=== PATIENT | female | born 1970 | race Two or more races ===

== ENCOUNTER 2022-12-15 11:50 | Outpatient (AMB) | payer BC, SELFPAY ==
--- NOTE | 2022-12-15 11:51 | A.OFFPC_ITS ---
Vital Signs 12/15/22 11:53 Height 5 ft 6 in Weight 150 lb 8 oz BMI 24.3 BP 120/80 Blood Pressure Location Lt brachial Position Sitting Pulse 63 Pulse Source Pulse Oximeter Pulse Oximetry (%) 99 Oxygen Delivery Method Room Air Intake Visit Reasons: Pain in Right Ear Intake Note: Patient is here today for right ear pain. 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 Accompanied by: Spouse Allergies No Known Allergies Allergy (Verified 12/15/22 11:53) Medication List - Last Reconciled 12/16/22 by Delfino Hagan MD azithromycin take 500 mg today (day 1), then 250 mg for 4 days (days 2-5) PO conj estrog-medroxyprogest sami 0.625-5 mg (Prempro) 1 tab PO DAILY Tobacco use date assessed: 12/15/22 Dental Screening Dental Screen Date: 12/15/22 Did you have a dental visit in the last 12 months?: Yes Did you have a dental problem in the last 6 months where you did not have access to dental care?: No Was dental information given to patient?: Patient has dentist HPI Pain in Right Ear HPI Details right ear pain for a few days PFSH Surgical History No pertinent past surgical history Social History (Updated 12/15/22 @ 11:57 by KELSEY Pulido) Housing: Condominium Alcohol intake: current Alcohol intake frequency: a few times a month Alcohol type: wine Patient Tobacco Use Status: Never used Tobacco e-Cigarette/Vaping Use: Never Used Second Hand Smoke Exposure: No service: No Current occupational status: employed Current occupation: [employer] Cognitive needs: No Hearing needs: No Vision needs: Yes (Glasses) Questionnaire PHQ-9 Over the last 2 weeks, how often have you been bothered by any of the following problems? 1. Little interest or pleasure in doing things: not at all 2. Feeling down, depressed, or hopeless: not at all 3. Trouble falling or staying asleep, or sleeping too much: not at all 4. Feeling tired or having little energy: not at all 5. Poor appetite or overeating: not at all 6. Feeling bad about yourself - or that you are a failure or have let yourself or your family down: not at all 7. Trouble concentrating on things, such as reading the newspaper or watching television: not at all 8. Moving or speaking so slowly that other people could have noticed. Or the opposite - being so fidgety or restless that you have been moving around a lot more than usual: not at all 9. Thoughts that you would be better off or of hurting yourself in some way: not at all Total score: 0 Depression Screening Interpretation: Negative Source: Developed by Drs. Delvis Fisher, Deisy Paul, Maxwell Peña and colleagues, with an educational hayden from [employer]. Thrive Questionnaire Date Thrive assessed: 12/15/22 I am a: Patient What is your living situation today?: I have a steady place to live Within the past 12 months, did the food you bought not last and you didn't have the money to get more?: Never true Within the past 12 months, did you worry whether your food would run out before you got money to buy more?: Never true Do you have trouble paying for medicines?: No Do you have trouble getting transportation to medical appointments?: No Do you have trouble paying your heating and electricity bill?: No Do you have trouble taking care of your child, family member or friend?: No Do you have trouble with day-to-day activities such as bathing, preparing meals, shopping, managing finances, etc.?: No Are you currently unemployed and looking for a job?: No Are you interested in more education?: No Currently or been in a relationship where the following occur: no concerns reported AUDIT C Alcohol Use Questionnaire (AUDIT-C) 1. How often do you have a drink containing alcohol?: Monthly or less 2. How many drinks containing alcohol do you have on a typical day when you are drinking?: 1 or 2 Total Score: 1 ANDREIA-7 AMB Questionnaire ANDREIA-7 Date ANDREIA - 7 assessed: 12/15/22 Feeling nervous, anxious, or on edge: 0 = Not at all Not being able to stop or control worryin = Not at all Worrying too much about different things: 0 = Not at all Trouble relaxin = Not at all Being so restless that it is hard to sit still: 0 = Not at all Becoming easily annoyed or irritable: 0 = Not at all Feeling afraid as if something awful might happen: 0 = Not at all Total ANDREIA-7 score (0-4 normal; 5-9 mild; 10-14 moderate; 15-21 severe): 0 Source: Developed by Drs. Delvis Fisher, Deisy Paul, Maxwell Peña and colleagues, with an educational hayden from [employer]. Review of Systems Const Denies chills, Denies headache(s) and Denies weight loss ENT Denies headache(s) Card Denies chest pain, Denies syncope, Denies irregular heart rhythm and Denies dyspnea Resp Denies chest congestion, Denies cough and Denies dyspnea GI Denies abdominal pain, Denies change in stool character, Denies nausea and Denies vomiting Musc Denies deformity and Denies joint swelling Neuro Denies syncope and Denies headache(s) Physical exam (Primary Care) Vital Signs: Last Vital Signs Pulse 63 12/15/22 11:53 BP 120/80 12/15/22 11:53 Pulse Ox 99 12/15/22 11:53 Oxygen Delivery Method Room Air 12/15/22 11:53 BMI result Body Mass Index 24.3 Tobacco/Smoking Status: Tobacco use Status Tobacco use date assessed 12/15/22 12/15/22 11:58 Patient Tobacco Use Status Never used Tobacco 12/15/22 11:58 e-Cigarette/Vaping Use Never Used 12/15/22 11:58 PHQ-9: PHQ-9 Score PHQ-9: Total score 0 12/15/22 11:58 Depression Screening Interpretation: Negative Thrive Assessment: Date of Thrive Assessment Date Thrive assessed 12/15/22 12/15/22 11:58 Currently or been in a relationship where the following occur: no concerns reported Const General: cooperative, comfortable and no acute distress HENMT Other: right OM Eyes General: appearance normal, both eyes and all related structures Neck Neck: Yes normal visual inspection Assessment and Plan Assessment & Plan (1) Otitis media: Code(s): H66.90 - Otitis media, unspecified, unspecified ear Plan: take rx Medications: New azithromycin take 500 mg today (day 1), then 250 mg for 4 days (days 2-5) PO 6 tabs 0RF Coding Level of Care Code Est Pt Level 3 (31328) Diagnoses Otitis media H66.90
[2022-12-15 11:53] VITALS: BP 120/80; PULSE 63; O2SAT 99; BMI 24.3
== END 2022-12-15 12:54 | disposition home or self-care (01) ==
PROVIDERS: PCP Internal Medicine; Visit Provider Internal Medicine
DX: H66.90 Otitis media, unspecified, unspecified ear (principal)
CPT/HCPCS: 99213

== ENCOUNTER 2023-01-27 14:09 | Outpatient (AMB) | payer BC, SELFPAY ==
[2023-01-27 14:12] VITALS: BP 124/82; PULSE 60; O2SAT 100; BMI 24.9
--- NOTE | 2023-01-27 14:12 | MHC.PC.OV ---
Vital Signs 01/27/23 14:12 Height 5 ft 6 in Weight 154 lb BMI 24.9 BP 124/82 Blood Pressure Location Lt brachial Position Sitting Pulse 60 Pulse Source Pulse Oximeter Pulse Oximetry (%) 100 Oxygen Delivery Method Room Air Intake Visit Reasons: EAR PAIN Allergies No Known Allergies Allergy (Verified 01/27/23 14:13) Medication List - Last Reconciled 01/28/23 by Delfino Hagan MD azithromycin take 500 mg today (day 1), then 250 mg for 4 days (days 2-5) PO conj estrog-medroxyprogest sami 0.625-5 mg (Prempro) 1 tab PO DAILY zolpidem 5 mg PO BEDTIME Tobacco use date assessed: 12/15/22 Dental Screening Dental Screen Date: 01/27/23 Did you have a dental visit in the last 12 months?: Yes Did you have a dental problem in the last 6 months where you did not have access to dental care?: No Was dental information given to patient?: Patient has dentist HPI EAR PAIN HPI Details right ear pain PFSH Surgical History No pertinent past surgical history Social History Housing: Condominium Alcohol intake: current Alcohol intake frequency: a few times a month Alcohol type: wine Patient Tobacco Use Status: Never used Tobacco e-Cigarette/Vaping Use: Never Used Second Hand Smoke Exposure: No service: No Current occupational status: employed Current occupation: [employer] Cognitive needs: No Hearing needs: No Vision needs: Yes (Glasses) Questionnaire PHQ-9 Over the last 2 weeks, how often have you been bothered by any of the following problems? 1. Little interest or pleasure in doing things: not at all 2. Feeling down, depressed, or hopeless: not at all 3. Trouble falling or staying asleep, or sleeping too much: not at all 4. Feeling tired or having little energy: not at all 5. Poor appetite or overeating: not at all 6. Feeling bad about yourself - or that you are a failure or have let yourself or your family down: not at all 7. Trouble concentrating on things, such as reading the newspaper or watching television: not at all 8. Moving or speaking so slowly that other people could have noticed. Or the opposite - being so fidgety or restless that you have been moving around a lot more than usual: not at all 9. Thoughts that you would be better off or of hurting yourself in some way: not at all Total score: 0 Depression Screening Interpretation: Negative Depression Screening Done: Yes Source: Developed by Drs. Delvis Fisher, Deisy Paul, Maxwell Peña and colleagues, with an educational hayden from [employer]. Thrive Questionnaire Date Thrive assessed: 12/15/22 AUDIT C Alcohol Use Questionnaire (AUDIT-C) 1. How often do you have a drink containing alcohol?: Monthly or less 2. How many drinks containing alcohol do you have on a typical day when you are drinking?: 1 or 2 Total Score: 1 ANDREIA-7 AMB Questionnaire ANDREIA-7 Date ANDREIA - 7 assessed: 12/15/22 Source: Developed by Drs. Delvis Fisher, Deisy Paul, Maxwell Peña and colleagues, with an educational hayden from [employer]. Review of Systems Const Denies chills, Denies headache(s) and Denies weight loss ENT Denies headache(s) Card Denies chest pain, Denies syncope, Denies irregular heart rhythm and Denies dyspnea Resp Denies chest congestion, Denies cough and Denies dyspnea GI Denies abdominal pain, Denies change in stool character, Denies nausea and Denies vomiting Musc Denies deformity and Denies joint swelling Neuro Denies syncope and Denies headache(s) Physical exam (Primary Care) Vital Signs: Last Vital Signs Pulse 60 01/27/23 14:12 BP 124/82 01/27/23 14:12 Pulse Ox 100 01/27/23 14:12 Oxygen Delivery Method Room Air 01/27/23 14:12 BMI result Body Mass Index 24.9 Tobacco/Smoking Status: Tobacco use Status Tobacco use date assessed 12/15/22 01/27/23 14:14 Patient Tobacco Use Status Never used Tobacco 01/27/23 14:14 e-Cigarette/Vaping Use Never Used 01/27/23 14:14 PHQ-9: PHQ-9 Score PHQ-9: Total score 0 01/27/23 14:23 Depression Screening Interpretation: Negative Thrive Assessment: Date of Thrive Assessment Date Thrive assessed 12/15/22 01/27/23 14:14 Const General: cooperative, comfortable, no acute distress and alert HENMT Other: normal ears Neck Neck: Yes no lymphadenopathy Thyroid: Thyroid normal Resp Effort & Inspection: normal respiratory effort Auscultation: clear to auscultation bilaterally Percussion: percussion normal Cardio Jugular venous distension: no JVD Palpation: normal PMI Rate: regular rate Rhythm: regular rhythm Heart sounds: S1 normal heart sound present and S2 normal heart sound present GI Inspection: Yes normal to inspection Palpation (GI): No hepatosplenomegaly present Skin General skin exam: no rashes or lesions noted Extrem General: Yes no clubbing, cyanosis or edema Assessment and Plan Assessment & Plan (1) Otalgia of right ear: Code(s): H92.01 - Otalgia, right ear Plan: refer Orders: Referrals Ear/Nose/Throat Referral H92.01 - Otalgia, right ear Medications: New zolpidem may repeat once if no response in 30-60 minutes 5 mg PO BEDTIME 30 tabs 2RF Refilled azithromycin take 500 mg today (day 1), then 250 mg for 4 days (days 2-5) PO 6 tabs 1RF Coding Level of Care Code Est Pt Level 3 (96828) Diagnoses Otalgia of right ear H92.01
== END 2023-01-27 15:17 | disposition home or self-care (01) ==
PROVIDERS: PCP Internal Medicine; Visit Provider Internal Medicine
DX: H92.01 Otalgia, right ear (principal)
CPT/HCPCS: 99213

== ENCOUNTER 2024-07-12 11:34 | Outpatient (AMB) | payer BC, SELFPAY ==
[2024-07-12 11:39] VITALS: BP 118/72; PULSE 63; TEMP 36.9; O2SAT 98
--- NOTE | 2024-07-12 11:39 | MHC.OFFWIV ---
Intake Vital Signs 07/12/24 11:39 Height 5 ft 6 in BP 118/72 Blood Pressure Location Lt brachial Position Sitting Pulse 63 Pulse Source Pulse Oximeter Temp 98.5 F Temp Source Oral Pulse Oximetry (%) 98 Oxygen Delivery Method Room Air Intake Visit Reasons: EP-sore throat,cough,headaches,running nose Patient Tobacco Use Status: Never used Tobacco Allergies No Known Allergies Allergy (Verified 07/12/24 11:39) Do you need a note to return to daycare/school/sports/work: No HPI HPI Comments History of Present Illness Details This is a 54-year-old female with no stated past medical history presenting for evaluation of cough, sore throat and headache that she has had since Thursday evening. Patient states she became hoarse with body aches over the weekend. She denies having any fevers but has had chills. She is taking Tylenol and DayQuil for relief of her symptoms. Patient denies having any otalgia, chest pain or overt shortness of breath. Patient states she traveled to [place] last week to visit family and 1 of her family members had similar symptoms. [facility] Medical History (Updated 07/12/24 @ 12:14 by Rosa Mohamud PA-C) Acute upper respiratory infection Surgical History No pertinent past surgical history Social History [facility] Alcohol intake: current Alcohol intake frequency: a few times a month Alcohol type: wine Patient Tobacco Use Status: Never used Tobacco e-Cigarette/Vaping Use: Never Used Second Hand Smoke Exposure: No service: No Current occupational status: employed Current occupation: [place] [employer] Cognitive needs: No Hearing needs: No Vision needs: Yes (Glasses) Review of Systems Const All systems reviewed & are unremarkable except as noted in HPI and below Reports as per HPI, Reports chills, Reports fatigue, Denies fever(s) and Reports headache(s) Eyes Reports no additional complaints ENT Reports as per HPI, Denies otalgia, Reports headache(s), Denies sinus pressure and Reports sore throat Card Reports as per HPI, Denies chest pain, Denies dyspnea and Denies dyspnea on exertion Resp Reports cough, Denies hemoptysis, Denies dyspnea, Denies dyspnea on exertion and Denies wheezing GI Reports no additional complaints Reports no additional complaints Musc Reports no additional complaints Skin/Breast Reports system reviewed and no additional complaints, except as documented Neuro Reports no additional complaints and Reports headache(s) Psych Reports no additional complaints Endo Reports no additional complaints and Reports fatigue Charbel/Lymph Reports no additional complaints Aller/Immun Reports no additional complaints and Denies wheezing Physical Exam Vital Signs: Last Vital Signs Temp 98.5 F 07/12/24 11:39 Pulse 63 07/12/24 11:39 BP 118/72 07/12/24 11:39 Pulse Ox 98 07/12/24 11:39 Oxygen Delivery Method Room Air 07/12/24 11:39 Patient is afebrile. Const General: cooperative, comfortable, well developed, alert and awake Nutritional Appearance: average body habitus Orientation/consciousness: patient oriented x3 Limitations: no limitations HEENT Head: Yes normal to inspection and Yes normocephalic Ears: hearing grossly normal bilaterally, external ears normal, TM's normal bilaterally and EAC's normal General nose exam: Normal external nose present Face and sinus: Yes normal facial exam Mouth: Normal oral and palatal mucosa present, oropharynx normal and moist mucous membranes Throat: Yes posterior oropharynx normal and No postnasal drainage Eyes General: appearance normal, both eyes and all related structures Neck Lymphatic: no lymphadenopathy noted Resp Effort & Inspection: normal respiratory effort, able to speak in complete sentences, no audible wheezes and no cough Auscultation: clear to auscultation bilaterally, no crackles, no rales, no rhonchi and no wheezes Cardio Rate: regular rate Rhythm: regular rhythm Skin General skin exam: no rashes or lesions noted Neuro General: patient oriented x3 Psych Appearance: grossly normal Mental Status: mental status grossly normal Insight: Good insight present (Psych) Judgement: Good judgement present (Psych) Results AMB Rapid Strep AMB Rapid Strep Negative Last Edit by Leonides Adamson CMA on 07/12/24 11:53 Results Reviewed Results Reviewed: Laboratory Last Values Strep Scn [facility] Negative 07/12/24 11:52 Assessment & Plan Assessment & Plan (1) Acute upper respiratory infection: Comment: SARS panel is ordered and results are pending. Code(s): J06.9 - Acute upper respiratory infection, unspecified Plan: Increased clear fluids daily, Mucinex OTC, Tylenol or ibuprofen as needed, tea with honey for cough. SARS panel pending. Orders: Orders AMB Rapid Strep Screen Today Z13.9 - Encounter for screening, unspecified SARS-CoV2/FLU/RSV Today J06.9 - Acute upper respiratory infection, unspecified Coding Level of Care Code Est Pt Level 3 (89777) Diagnoses Acute upper respiratory infection J06.9 Time Spent (min) 20
== END 2024-07-12 12:14 | disposition home or self-care (01) ==
PROVIDERS: PCP Internal Medicine; Visit Provider Physician Assistant
DX: J06.9 Acute upper respiratory infection, unspecified (principal); Z13.9 Encounter for screening, unspecified

== ENCOUNTER 2024-07-12 11:34 | Outpatient (REF) | payer BC, SELFPAY ==
[2024-07-12 16:08] LABS: Influenza A PCR NEGATIVE (Negative); Influenza B PCR NEGATIVE (Negative); Resp Syncy Virus RNA Qual PCR NEGATIVE (Negative); SARS COV2 PCR INHOUSE NEGATIVE (Negative)
== END 2024-07-12 11:35 | disposition home or self-care (01) ==
LOC: HO.LNP 11:34
PROVIDERS: PCP Internal Medicine; Visit Provider Physician Assistant
DX: J06.9 Acute upper respiratory infection, unspecified (principal); Z03.818 Encounter for observation for suspected exposure to other biological agents ruled out
CPT/HCPCS: 0241U; 87880

== ENCOUNTER 2024-11-11 15:29 | Outpatient (AMB) | payer BC, SELFPAY ==
[2024-11-11 15:32] VITALS: BP 100/70; PULSE 85; TEMP 36.2; O2SAT 95; BMI 24.4
--- NOTE | 2024-11-11 15:32 | A.OFFPC_ITS ---
Vital Signs 11/11/24 15:32 Height 5 ft 6 in Weight 151 lb 2 oz BMI 24.4 BP 100/70 Blood Pressure Location Lt brachial Position Sitting Pulse 85 Pulse Source Pulse Oximeter Temp 97.1 F Temp Source Temporal Artery Scan Pulse Oximetry (%) 95 Oxygen Delivery Method Room Air Intake Visit Reasons: DARIELA DR Hagan/ follow up [employer] Lead Required: No Accompanied by: Self / Same As Patient Allergies No Known Allergies Allergy (Verified 11/11/24 16:04) Medication List - Last Reconciled 11/11/24 by CHRYSTAL Whalen conj estrog-medroxyprogest sami 0.625-5 mg (Prempro) 1 tab PO DAILY zolpidem 5 mg PO BEDTIME Tobacco use date assessed: 11/11/24 Dental Screening Dental Screen Date: 11/11/24 Did you have a dental visit in the last 12 months?: Yes Did you have a dental problem in the last 6 months where you did not have access to dental care?: No Was dental information given to patient?: Patient has dentist HPI DARIELA DR Hagan/ follow up HPI Details The patient is a 54-year-old female presenting to transition care from Dr. Hagan who retired. She is here with concerns of medication management for Prempro due to upcoming travel to [facility] for one year. The patient has been taking Prempro monthly and requires a long-term prescription to cover her stay in [facility]. She has discussed with the pharmacy about the possibility of obtaining a long-term supply, and they have indicated willingness to provide it if the order is placed. She reports history of insomnia in his requesting a refill on her Ambien 5 mg at bedtime. Reports that she rarely takes it but think that she should have it just in case this worsens Additionally, the patient experiences menopausal symptoms and is currently managing these with Prempro. Patient refused request to order labs because there is no blood work noted in her chart. Per patient, she will do this when she is back from [facility]. COUNT INCLUDES THE [facility] Medical History Acute upper respiratory infection Surgical History No pertinent past surgical history Social History Housing: Condominium Alcohol intake: current Alcohol intake frequency: a few times a month Alcohol type: wine Patient Tobacco Use Status: Never used Tobacco e-Cigarette/Vaping Use: Never Used Second Hand Smoke Exposure: No service: No Current occupational status: employed Current occupation: [employer] Cognitive needs: No Hearing needs: No Vision needs: Yes (Glasses) Questionnaire PHQ-9 Over the last 2 weeks, how often have you been bothered by any of the following problems? 1. Little interest or pleasure in doing things: not at all 2. Feeling down, depressed, or hopeless: not at all 3. Trouble falling or staying asleep, or sleeping too much: not at all 4. Feeling tired or having little energy: not at all 5. Poor appetite or overeating: not at all 6. Feeling bad about yourself - or that you are a failure or have let yourself or your family down: not at all 7. Trouble concentrating on things, such as reading the newspaper or watching te levision: not at all 8. Moving or speaking so slowly that other people could have noticed. Or the opposite - being so fidgety or restless that you have been moving around a lot more than usual: not at all 9. Thoughts that you would be better off or of hurting yourself in some way: not at all Total score: 0 Depression Screening Interpretation: Negative Depression Screening Done: Yes 65405 - PHQ-9 Billing: Yes Source: Developed by Drs. Delvis Fisher, Deisy Paul, Maxwell Peña and colleagues, with an educational hayden from [employer]. Thrive Questionnaire Date Thrive assessed: 11/11/24 I am a: Patient What is your living situation today?: I have a steady place to live Within the past 12 months, did the food you bought not last and you didn't have the money to get more?: Never true Within the past 12 months, did you worry whether your food would run out before you got money to buy more?: Never true Do you have trouble paying for medicines?: No Do you have trouble getting transportation to medical appointments?: I choose not to answer this question Do you have trouble paying your heating and electricity bill?: No Do you have trouble taking care of your child, family member or friend?: No Do you have trouble with day-to-day activities such as bathing, preparing meals, shopping, managing finances, etc.?: No Are you currently unemployed and looking for a job?: No Are you interested in more education?: No Please select the resources that you would like help with: None Currently or been in a relationship where the following occur: No concerns reported THRIVE Score: 0 AUDIT C Alcohol Use Questionnaire (AUDIT-C) 1. How often do you have a drink containing alcohol?: Never Total Score: 0 ANDREIA-7 AMB Questionnaire ANDREIA-7 Date ANDREIA - 7 assessed: 11/11/24 Feeling nervous, anxious, or on edge: 0 = Not at all Not being able to stop or control worryin = Not at all Worrying too much about different things: 0 = Not at all Trouble relaxin = Not at all Being so restless that it is hard to sit still: 0 = Not at all Becoming easily annoyed or irritable: 0 = Not at all Feeling afraid as if something awful might happen: 0 = Not at all Total ANDREIA-7 score (0-4 normal; 5-9 mild; 10-14 moderate; 15-21 severe): 0 Source: Developed by Drs. Delvis Fisher, Deisy Paul, Maxwell Peña and colleagues, with an educational hayden from [employer]. ANDREIA-7 Assessment Billing ANDREIA-7 Assessment Tool: ANDREIA-7 Assessment 29861 Review of Systems Const Reports difficulty sleeping and Denies headache(s) Eyes Denies loss of vision ENT Denies vertigo, Denies dizziness, Denies headache(s) and Denies sore throat Card Denies chest pain, Denies leg edema and Denies lightheadedness Resp Denies cough, Denies hemoptysis and Denies wheezing GI Denies abdominal pain, Denies melena, Denies constipation, Denies diarrhea and Denies vomiting Denies urinary frequency, Denies dysuria and Denies urinary urgency Musc Denies arthralgias, Denies joint swelling, Denies numbness and Denies tingling Neuro Denies Abnormal speech present, Denies behavioral changes, Denies vertigo, Denies dizziness, Denies headache(s), Denies loss of vision, Denies memory loss, Denies numbness and Denies tingling Psych Denies anxiety, Denies behavioral changes, Denies depression, Denies memory loss and Denies panic attacks Charbel/Lymph Denies easy bleeding and Denies easy bruising Aller/Immun Denies wheezing Physical exam (Primary Care) Vital Signs: Last Vital Signs Temp 97.1 F 11/11/24 15:32 Pulse 85 11/11/24 15:32 BP 100/70 11/11/24 15:32 Pulse Ox 95 11/11/24 15:32 Oxygen Delivery Method Room Air 11/11/24 15:32 BMI result Body Mass Index 24.4 Tobacco/Smoking Status: Tobacco use Status Tobacco use date assessed 11/11/24 11/11/24 15:39 Patient Tobacco Use Status Never used Tobacco 11/11/24 15:39 e-Cigarette/Vaping Use Never Used 11/11/24 15:39 PHQ-9: PHQ-9 Score PHQ-9: Total score 0 11/11/24 17:05 Depression Screening Interpretation: Negative Thrive Assessment: Date of Thrive Assessment Date Thrive assessed 11/11/24 11/11/24 15:39 Currently or been in a relationship where the following occur: No concerns repor katy Const General: healthy appearing, no acute distress, alert and awake Nutritional Appearance: well nourished Orientation/consciousness: oriented to person, oriented to place and oriented to time HENMT Ears: TM's normal bilaterally General nose exam: Normal nasal mucous membranes and turbinates present Eyes Conjunctivae: conjunctivae normal Sclerae: sclerae normal Pupils: Equal, round and reactive pupils present Neck Neck: Yes no lymphadenopathy and Yes no JVD Thyroid: Thyroid normal Carotids: no bruits Resp Effort & Inspection: normal respiratory effort and not tachypneic Auscultation: no crackles, no rales, no rhonchi and no wheezes Cardio Rate: regular rate Rhythm: regular rhythm Heart sounds: no murmurs and normal S1 and S2 GI Palpation (GI): Soft to palpation, nontender, no hepatomegaly and no splen omegaly Auscultation: normal bowel sounds Skin General skin exam: no rashes or lesions noted and dry skin Neuro General: oriented to person, oriented to place and oriented to time Cranial nerves: Yes Equal, round and reactive pupils present Speech: No Abnormal speech present Gait exam (Neuro): Normal gait present Motor exam (neuro): no tremor noted Extrem Right upper extremity: full ROM Left upper extremity: full ROM Right lower extremity: full ROM; no edema Left lower extremity: full ROM; no edema Psych Mental Status: mental status grossly normal Speech and movement: Normal speech and movement present Affect: normal affect Attitude: cooperative Thought process: Normal thought process present Immunizations Boostrix Tdap 2.5 Lf unit-8 mcg-5 Lf/0.5 mL intramuscular syringe Performing Provider: CHRYSTAL Whalen [facility] Administered by: Dolores Bush LPN on 11/11/24 17:02 Dose Route Admin Location Dispensed Lot Number Expiration Date NDC Supervisor Assembly Room 0.5 mL IM Left Deltoid 0.5 mL [id number] 06/10/26 [id number] 3D Hubs Total Dispensed Waste 0.5 mL 0 % VIS Given Date VIS Provided VIS Publication Date 11/11/24 Single Vaccine 20 Eligibility Eligibility Date Funding Source Not [facility] Eligible 11/11/24 Private Coding Level of Care Code Est Pt Level 3 (03548) Diagnoses Post menopausal problems N95.9 Insomnia, unspecified type G47.00 Insomnia type: unspecified Additional Codes PHQ-9 - 61905 - PHQ-9 Billing: Yes ([id number]) ANDREIA-7 Assessment Billing - ANDREIA-7 Assessment Tool: ANDREIA-7 Assessment 80307 ([id number]) Time Spent (min) 33 Assessment & Plan Assessment & Plan (1) Post menopausal problems: Code(s): N95.9 - Unspecified menopausal and perimenopausal disorder Category: Medical Plan: Patient reports taking Prempro for her postmenopausal symptoms that as resolved since taking the medication. She is planning on going to [facility] for a year and would like to fill enough of this medication to last her during her stay. Benji freeman reports that she spoke to the pharmacy and they are willing to fill this medication if an order was placed. Discussed with the patient to call her insurance to see if they are willing to pay for this number of medication. Also, if her insurance is not willing to pay for this medication is it feasible to be paid out of pocket? The patient we will call her insurance and contact the office to let us know if we could go ahead an order the number of medication that she is requesting. (2) Insomnia: Code(s): G47.00 - Insomnia, unspecified Category: Medical Qualifiers: Insomnia type: unspecified Qualified Code(s): G47.00 - Insomnia, unspecified Plan: Reinforced sleep hygiene Refilled Ambien 5 mg at bedtime as needed Orders: Orders TDaP Immunization 11/11/24 Z23 - Encounter for immunization Medications: Changed From zolpidem may repeat once if no response in 30-60 minutes 5 mg PO BEDTIME 30 tabs 2RF To zolpidem 5 mg PO BEDTIME 30 tabs 0RF Refilled zolpidem may repeat once if no response in 30-60 minutes 5 mg PO BEDTIME 30 tabs 2RF
--- OUTSIDE RECORDS SUMMARY | 2024-11-11 15:32 | XMS_ITS | Data Portability ---
Author Organization [facility] Address [address] [place] [address] Assessment Encounter Date Assessment Date Assessment LastModified by Organization Details LastModified Time 04/28/2017 04/28/2017 Advised patient to follow up in 1 year or sooner if needed. [email or web address] Not available 04/28/2017 12:24:06 10/26/2017 10/26/2017 . [email or web address] Not available 12/2017 12:22:03 Plan of Treatment Reminders Order Date Submit Date Provider Last Modified By Organization Details Last Modified Time Details Appointments None record ed. Lab None record ed. Referral None record ed. Procedures None record ed. Surgeries None record ed. Imaging None record ed. Medication Orders None record ed. Patient TargetsNo targets recorded. Patient InstructionsNo instructions recorded. Reason for Referral None Reported. Results Created Date Observation Date Name Description Value Unit Range Abnormal Flag Note LastModifiedBy Organization Detail LastModifiedTime 04/28/19 18 04/28/2017 CBC WBC count 3.8 K/mm3 4.0-11 .0 low Not Available [address] [place] [address], [address], 04/28/2017 13:23:25 04/28/19 18 04/28/2017 CBC red blood cell count 4.20 M/uL 4.00-5 .50 normal Not Available [address] [place] [address], 8[address]18, 04/28/2017 13:23:25 04/28/19 18 04/28/2017 CBC hemoglobin 12.5 gm/dL 12.0-1 6.0 normal Not Available [address] [place] [address], 16565, 04/28/2017 13:23:25 04/28/19 18 04/28/2017 CBC hematocrit 39.0 % 37.0-4 7.0 normal Not Available [address] [place] [address], 56745, 04/28/2017 13:23:25 04/28/19 18 04/28/2017 CBC MCV 92.9 fL 84-99 normal Not Available [address] [place] [address], 94544, 04/28/2017 13:23:25 04/28/19 18 04/28/2017 CBC RDW 12.9 % 11.5-1 6.0 normal Not Available [address] [place] [address], 27312, 04/28/2017 13:23:25 04/28/19 18 04/28/2017 CBC plt count 262 K/uL 140-44 0 normal Not Available [address] [place] [address], 13947, 04/28/2017 13:23:25 04/28/19 18 04/28/2017 CBC NRBC% 0.0 % 0-0.2 normal Not Available [address] [place] [address], 26527, 04/28/2017 13:23:25 04/28/19 18 04/28/2017 CBC ne# 1.95 K/uL 1.5-7. 5 normal Not Available [address] [place] [address], [address], 04/28/2017 13:23:25 04/28/19 18 04/28/2017 CBC ly# 1.27 K/uL 1.0-4. 5 normal Not Available [address] [place] [address], [address], 04/28/2017 13:23:25 04/28/19 18 04/28/2017 CBC MO# 0.29 K/uL 0.0-0. 8 normal Not Available [address] [place] [address] [place] [address], 27725, 04/28/2017 13:23:25 04/28/19 18 04/28/2017 CBC eo# 0.24 K/uL 0.0-0. 4 normal Not Available [address] [place] [address] [address] [place] [address], 10365, 04/28/2017 13:23:25 04/28/19 18 04/28/2017 CBC ba# 0.02 K/uL 0.0-0. 2 normal Not Available [address] [place] [address] [address] [place] [address], 55840, 04/28/2017 13:23:25 04/28/1904/28/2017 CBC Ig# 0.01 K/uL normal Not Available [address] [place] [address] [address] [place] [address], 29319, 04/28/2017 13:23:25 04/28/19 18 04/28/2017 CBC ne% 51.6 % normal Not Available [address] [place] [address] [address] [place] [address], 88372, 04/28/2017 13:23:25 04/28/1904/28/2017 CBC ly% 33.6 % normal Not Available [address] [place] [address] [address] [place] [address], 82177, 04/28/2017 13:23:25 04/28/19 18 04/28/2017 CBC MO% 7.7 % normal Not Available [address] [place] [address] [address] [place] [address], 82466, 04/28/2017 13:23:25 04/28/19 18 04/28/2017 CBC eo% 6.3 % normal Not Available [address] [place] [address] [address] [place] [address], 98441, 04/28/2017 13:23:25 04/28/1904/28/2017 CBC ba% 0.5 % normal Not Available [address] [place] [address] [address] [place] [address], 51527, 04/28/2017 13:23:25 01/09/20 18 04/28/2017 CBC Ig% 0.3 % normal Not Available [address] [place] [address], 73362, 04/28/2017 13:23:25 04/28/19 18 04/28/2017 CMP, serum or plasm a glucose 78 mg/dL 70-100 normal Not Available [address] [place] [address], 77498, 04/28/2017 13:55:42 04/28/19 18 04/28/2017 CMP, serum or plasm a BUN 4 mg/dL 5-19 low Not Available [address] [place] [address], 12675, 04/28/2017 13:55:42 04/28/19 18 04/28/2017 CMP, serum or plasm a creatinine 0.58 mg/dL 0.0-1. 2 normal Not Available [address] [place] [address], 84236, 04/28/2017 13:55:42 04/28/19 18 04/28/2017 CMP, serum or plasm a glomerular filtration rate > 60 normal Units : mL/mi n/1.7 3 m2 Estim ated GFR (eGFR ) shoul d not be used for patie nts with acute kidne y injur y or ESRD (crea tinin e shoul d be at stead y state and stabl e to use). eGFR is calcu lated using the 2009 CKD-E PI creat inine equat ion, which is now the recom twan d equat ion to estim ate GFR based on creat inine per lates t KDIGO (Kidn ey Disea se Impro ving Globa l Outco mes) Guide lines . KDIGO recom mends CKD now be class ified based on cause , GFR categ ory, and album inuri a categ ory. GFR categ ories will not be repor katy by the lab for G1 or G2 (eGFR >60). GFR categ ories shoul d be assig carlos as: eGFR 45-59 = G3a (mild ly to moder ately decre ased) , eGFR 30-44 = G3b (mode ratel y to sever emma decre ased) , eGFR 15-29 G4 (andre rely decre ased) , eGFR< 15 G5 (kidn ey failu re). Not Available [address] [place] [address], 01455, 04/28/2017 13:55:42 04/28/19 18 04/28/2017 CMP, serum or plasm a calcium 8.9 mg/dL 8.3-9. 9 normal Not Available [address] [place] [address], 70147, 04/28/2017 13:55:42 04/28/19 18 04/28/2017 CMP, serum or plasm a total protein 7.6 g/dL 6.2-8. 2 normal Effec tive 5: Pleas e note the refer ence range for this test has kimbrough ed. Exact pedia tric range s are not estab lishe d, but tend to be lower than adult range s. Not Available [address] [place] [address], 03929, 04/28/2017 13:55:42 04/28/19 18 04/28/2017 CMP, serum or plasm a albumin 3.8 g/dL 2.9-4. 7 normal Not Available [address] [place] [address], 11707, 04/28/2017 13:55:42 04/28/19 18 04/28/2017 CMP, serum or plasm a alkaline phosphatase 61 IU/L 18-210 normal Not Available [address] [place] [address], 63163, 04/28/2017 13:55:42 04/28/19 18 04/28/2017 CMP, serum or plasm a SGOT (AST) 19 IU/L 15-37 normal Effec tive 5: Pleas e note the refer ence range for this test has kimbrough ed. Not Available [address] [place] [address], 28975, 04/28/2017 13:55:42 04/28/19 18 04/28/2017 CMP, serum or plasm a bilirubin total 0.8 mg/dL 0.2-1. 3 normal Not Available [address] [place] [address], 44160, 04/28/2017 13:55:42 04/28/19 18 04/28/2017 CMP, serum or plasm a SGPT (ALT) 18 IU/L 13-56 normal Not Available [address] [place] [address], 70307, 04/28/2017 13:55:42 04/28/19 18 04/28/2017 CMP, serum or plasm a sodium 140 mEq/L 135-14 5 normal Not Available [address] [place] [address], 40747, 04/28/2017 13:55:42 04/28/19 18 04/28/2017 CMP, serum or plasm a potassium 4.8 mEq/L 3.5-5. 1 normal Not Available [address] [place] [address], 02014, 04/28/2017 13:55:42 04/28/19 18 04/28/2017 CMP, serum or plasm a chloride 106 mEq/L 98-112 normal Not Available [address] [place] [address], 58103, 04/28/2017 13:55:42 04/28/19 18 04/28/2017 CMP, serum or plasm a CO2 28 mEq/L 20-32 normal Not Available [address] [place] [address], 77986, 04/28/2017 13:55:42 04/28/19 18 04/28/2017 CMP, serum or plasm a anion gap 6 mEq/L 5-15 normal Not Available [address] [place] [address], 94058, 04/28/2017 13:55:42 04/28/19 18 04/28/2017 lipid panel , serum cholesterol 192 mg/dL normal TORRI ABLE <200 Torri able 200-2 39 Borde rline High >=240 High Not Available [address] [place] [address] St, [place], [address], 04/28/2017 13:55:43 04/28/19 18 04/28/2017 lipid panel , serum triglyceride 44 mg/dL normal BRITTANEY L <=150 Brittaeny l 150-1 99 Borde rline High 200-4 99 High >=500 Very High Not Available [address] [place] [address] [address] [place] [address], 82383, 04/28/2017 13:55:43 04/28/19 18 04/28/2017 lipid panel , serum HDL 75 mg/dL normal OPTIM AL <40 Low >=60 Optim al Not Available [address] [place] [address] [address] [place] [address], 05135, 04/28/2017 13:55:43 04/28/1904/28/2017 lipid panel , serum calculated LDL 108 mg/dL normal NEAR OPTIM AL <100 Optim al 100-1 29 Near optim al 130-1 59 Borde rline High 160-1 89 High >=190 Very High The above class ifica tions are based on the recom menda tions of the NCEP Exper t Panel , (ATP III, 2001) . Not Available [address] [place] [address] [address] [place] [address], 17842, 04/28/2017 13:55:43 04/28/19 18 04/28/2017 TSH, serum or plasm a thyroid stimulating hormone 0.84 uIU/m L 0.36-3 .74 normal Effec tive 5: Pleas e note the refer ence range for this test has kimbrough ed. Not Available [address] [place] [address] [address] [place] [address], 55372, 04/28/2017 13:55:44 04/28/19 18 04/28/2017 FSH (foll icle- stimu latin g hormo ne), serum follicle stimulating hormone 35.5 mIU/m L normal Effec tive 5: Pleas e note the refer ence range for this test has kimbrough ed. Un able to flag abnor mal resul ts. Refer to Expec katy Value s below . Expec katy Value s Puber jessica adult femal es, menst rual cycle phase s: Menar valeria to pre-m enopa use: * Folli cular (firs t menst rual day throu gh the day befor e mid-c ycle LH peak) 2.3 - 12.6 mIU/m L * Mid-c ycle peak 5.2 - 17.5 mIU/m L * Lutea l (the day after mid-c ycle LH peak throu gh the day befor e next menst rual onset ) 1.7 - 9.5 mIU/m L Post- menop ausal * On Menop ausal hormo ne Thera py (MHT) 5.9 - 72.8 mIU/m L * Not on MHT 12.7 -132. 2 mIU/m L Not Available [address] [place] [address], 16157, 04/28/2017 13:55:45 04/28/19 18 04/28/2017 lh (lute inizi ng hormo ne), serum luteinizing hormone 55.2 mIU/m L normal Expec katy Value s: Femal es: mIU/m L Puber jessica adult femal es, menst rual cycle phase : * Folli cular (firs t menst rual day throu gh the day befor e mid-c ycle LH peak 1.9-1 2.8 * Mid-c ycle peak 22.8- 76.1 * Lutea l (the day agter mid-c ycle LH peak throu gh the day befor e next menst rual onset ) 0.6-1 3.5 Post- menop ausal * On Menop ausal Hormo ne Thera py (MHT) 1.1-5 2.4 * Not on MHT 8.6-6 1.8 Not Available [address] [place] [address], 85426, 04/28/2017 13:55:46 10/30/19 18 10/29/2017 TSH, serum or plasm a thyroid stimulating hormone 0.75 uIU/m L 0.36-3 .74 normal Effec tive 5: Pleas e note the refer ence range for this test has kimbrough ed. Not Available [address] [place] [address], 09906, 10/29/2017 19:39:11 10/30/19 18 10/29/2017 FSH (foll icle- stimu latin g hormo ne), serum follicle stimulating hormone 97.0 mIU/m L normal Effec tive 5: Pleas e note the refer ence range for this test has kimbrough ed. Un able to flag abnor mal resul ts. Refer to Expec katy Value s below . Expec katy Value s Puber jessica adult femal es, menst rual cycle phase s: Menar valeria to pre-m enopa use: * Folli cular (firs t menst rual day throu gh the day befor e mid-c ycle LH peak) 2.3 - 12.6 mIU/m L * Mid-c ycle peak 5.2 - 17.5 mIU/m L * Lutea l (the day after mid-c ycle LH peak throu gh the day befor e next menst rual onset ) 1.7 - 9.5 mIU/m L Post- menop ausal * On Menop ausal hormo ne Thera py (MHT) 5.9 - 72.8 mIU/m L * Not on MHT 12.7 -132. 2 mIU/m L Not Available [address] [place] [address], 58416, 10/29/2017 19:39:12 10/30/19 18 10/29/2017 lh (lute inizi ng hormo ne), serum luteinizing hormone 37.2 mIU/m L normal Expec katy Value s: Femal es: mIU/m L Puber jessica adult femal es, menst rual cycle phase : * Folli cular (firs t menst rual day throu gh the day befor e mid-c ycle LH peak 1.9-1 2.8 * Mid-c ycle peak 22.8- 76.1 * Lutea l (the day agter mid-c ycle LH peak throu gh the day befor e next menst rual onset ) 0.6-1 3.5 Post- menop ausal * On Menop ausal Hormo ne Thera py (MHT) 1.1-5 2.4 * Not on MHT 8.6-6 1.8 Not Available [facility] [address] [place], [address], 10/29/2017 19:39:12 05/12/19 18 MAMMO , diagn ostic , bilat eral No observ ation record ed. [email or web address] Not Available 05/12 14:01:26 05/15/19 18 05/15/2017 US, abdom en No observ ation record ed. [facility]) [address] [place], [address], 05/18/2017 08:10:15 05/21/19 18 05/20/2017 imagi ng/di agnos tic resul t No observ ation record ed. [facility] ([facility]) [address] [place], [address], 05/22/2017 07:59:14 08/07/19 19 08/06/2018 MAMMO , diagn ostic , bilat eral No observ ation record ed. [address], [address], 08/06/2018 16:15:57 12/05/19 20 12/05/2019 MAMMO , scree eric, bilat eral No observ ation record ed. [email or web address] [facility] [address] [facility], [place], [address], 12/06/2019 08:35:48 Result Notes None recorded. Problems Name Problem SNOMED Code Status Onset Date Resolution Date Notes Provider Name and Address Organization Details Recorded Time Seborrheic dermatitis 33023035 Active [facility] Arcen[facility] Rooney MD [facility] [address]ausch, [place], [address], [facility] - Arcenio Rooney MD 9 11:46:38 Problem Notes None recorded. Medical Equipment None Reported. Allergies No known drug allergies Medications Name Sig Start Date Stop Date Status Note LastModified by Organization Details LastModified Time Prescript ion - Renewal active prempro Not Available Not Available Not Available ketoconaz ole 2 % shampoo APPLY TO THE AFFECTED AREAS, LATHER,L EAVE IN PLACE FOR 5 MINUTES THEN RINSE OFF WITH WATER ONCE DAILY 12/14 completed Not Available Not Available Not Available Climara 0.025 mg/24 hr transderm al patch Apply 1 patch every week by transder mal route. 12/14 completed Not Available Not Available Not Available betametha sone valerate 0.12 % topical foam APPLY TO THE AFFECTED AREA(S) BY TOPICAL ROUTE 2 TIMES PER DAY ONCE IN THE MORNING AND ONCE AT NIGHT 12/14 completed Not Available Not Available Not Available ketoconaz ole 2 % topical cream APPLY TO THE AFFECTED AREA(S) BY TOPICAL ROUTE ONCE DAILY 12/14 completed Not Available Not Available Not Available Prempro 0.625 mg-5 mg tablet TAKE 1 TABLET DAILY patient needs appt active Not Available Not Available No t Available Vitals Date Recorded Body weight Body mass index (BMI) Body height Heart rate Systolic And Diastolic Provider Name and Address Organization Details Last Updated DateTime 04/28/2017 16056.89 g 22.7 kg/m2 170.18 cm 66 /min 120/70 mm[Hg] Lore Rooney MD 8 08:39:41 Date Recorded Body height Body mass index (BMI) Body weight Heart rate Systolic And Diastolic Provider Name and Address Organization Details Last Updated DateTime 06/03/2018 170.18 cm 22.2 kg/m2 58110.12 g 64 /min 118/76 mm[Hg] diana jaison Rooney MD 06/03/2018 10:34:08 Date Recorded Body height Body mass index (BMI) Body weight Heart rate Systolic And Diastolic Provider Name and Address Organization Details Last Updated DateTime 10/26/2017 170.18 cm 22.7 kg/m2 88671.89 g 80 /min 110/80 mm[Hg] Lore Rooney MD 8 08:13:36 Date Recorded Body height Body mass index (BMI) Body weight Heart rate Systolic And Diastolic Provider Name and Address Organization Details Last Updated DateTime 11/20/2017 170.18 cm 23.2 kg/m2 94206.67 g 60 /min 122/80 mm[Hg] Lore Rooney MD 8 17:07:42 Date Recorded Body height Body mass index (BMI) Body weight Respiratory rate Heart rate Systolic And Diastolic Provider Name and Address Organization Details Last Updated DateTime 9 170.18 cm 22.7 kg/m2 60931.8 9 g 14 /min 70 /min 120/80 mm[Hg] ayla Rooney MD 9 16:44:16 Social History Question Answer Notes LastModified by Organizat Second & Fourth Details LastModified Time Tobacco Smoking Status Never Smoker Not Available [facility] 02/21/2020 03:48:02 Live Alone Or With Others? With Others Domestic Partner Information not available 04/28/2017 What Was The Date Of Your Most Recent Tobacco Screening? 04/28/2017 [id number] Information not available 02/21/2020 Sex: Unknown Functional Status Question Answer Note LastModified by [employer] Details LastModified Time What is your occupation? [employer] [email or web address] Information not available 04/28/2017 Mental Status None recorded. Family History Relationship Description Onset Age of this Age Resolved Age Notes LastModified by Organization Details LastModified Time Mother Parkinson's disease [email or web address] Not available 2017 12:21:33 Father Malignant neoplasm of liver Not available 2017 12:21:50 Medical History No medical history recorded. Gynecological HistoryNo gynecological history recorded. Obstetrics History GPAL:G 0 P 0 0 0 0 Immunizations Vaccine Type Date Status Note Provider Nam e and Address Organization Details Recorded Time Hep A, adult 6 completed Not Available [facility] 05/21/2019 02:20:29 meningococcal MPSV4 6 completed Not Available [facility] 05/21/2019 02:20:29 Influenza, split virus, quadrivalent, preservative 8 completed Not Available [facility] 05/21/2019 02:20:30 Influenza, split virus, quadrivalent, preservative 9 completed Not Available [facility] 05/21/2019 02:20:30 Past Encounters Encounter ID Performer Location Encounter Start Date Encounter Closed Date Diagnosis/Indication Diagnosis SNOMED-CT Code Diagnosis ICD10 Code Diagnosis Note [id number] MD arcenio Escalera md [address] [place] [address] 12/12/2015 09:55:57 12/12/2015 10:45:17 [id number] MD arcenio Escalera md [address] [place] [address] 04/28/2017 08:30:49 04/28/2017 09:15:54 Adult health examination 675163236 Z00.00 Generally healthy. Regular menses check TSH LH FSH. Menses are getting to be far less frequent. Mild seborrhea noted behind the ears wrote for ketoconazo le shampoo with intermitte nt use of topical steroid. Mammogram ordered flu shot given follow-up annually and as needed [id number] MD arcenio Escalera md [address] [place] [address] 10/26/2017 07:59:44 10/26/2017 08:47:34 Menopausal flushing 023033346 N95.1 climara patch 0.0025 weekly. This should suppress vasomotor symptoms. Mammogram up-to-date . Reevaluate in 3-6 months. Seborrheic dermatitis 50 991868 L21.9 ketoconazo le 2%.Having good control. [id number] MD arcenio Escalera md [address] [place] [address] 11/20/2017 15:19:38 11/30/2017 10:44:58 Menopausal syndrome 461669884 N95.9 Symptoms improved. Will workup palpitatio ns with echo. Plan to add progestero ne 100 mg daily. Revisit after echo. [id number] MD arcenio Escalera md [address] [place] [address] 06/03/2018 10:28:20 06/03/2018 11:24:03 Adult health examination 346345433 Z00.00 Generally doing well. Update lipid profile and glucose reviewed diet and exercise and sleep habits. May continue on Climara patch for vasomotor symptoms if still needed. Mammogram is up-to-date follow-up annually and as needed. [id number] MD arcenio Escalera md [address] [place] [address] 12/14/2018 16:27:57 12/16/2018 13:52:21 Menopausal flushing 161235538 N95.1 Patient would like to continue therapy. Warned of risks of unopposed estrogen will switch to Prempro 0.625 and 5 mg 1 a day wrote for 30 and 12 refills will need to follow-up at completion of prescripti on Health Concerns Section Related Observation LastModified by Organization Detai ls LastModified Time None Recorded Concern Status LastModified by Organization Details LastModified Time None Recorded Advance Directives Directive None Recorded Payers Insurance Date Sequence Insurance Name Policy Number Policy Heredia Covered Member ID Heredia Member ID Guarantor Name 12/14/2018 1 [facility] [place] [place] [id number] Sharron Kimbrough [id number] [facility] Notes Date Note Type Note Provider Name and Address Organization Details Recorded Time 04/28/2017 text/html Annual exam generally feels well. Complaining of irregular menses think she is perimenopausal. Also having some scaly skin behind her ears. 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 Patient is from [facility] her partner is from [facility]. MD [address], [place], [address], [facility] - Arcenio [facility] 04/28/2017 12:25:18 10/26/2017 text/html Here to follow-up. Has used ketoconazole shampoo and topical steroid for seborrheic dermatitis. This is worked well but needs refill of ketoconazole. Her last menstrual cycle was a few months ago. She now is having nocturnal sweats. No abdominal pain or cramping. Overall mood is been good. 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 MD [address], [place], [address], [facility] - Arcenio [facility] 10/26/2017 12:22:37 11/20/2017 text/html FSH 97 consistent with menopause or perimenopause. No menstrual bleeding for 3 months. Hot flashes mostly resolved with transdermal estrogen. Should having intermittent palpitations. TSH normal. Overall patient is feeling better with no spotting. There is no history of DVT or breast cancer and patient is a non-smoker. MD [address], [place], [address], [facility] Rooney MD 11/22/2017 12:36:24 06/03/2018 text/html Follow-up for annual exam. She feels very well. No acute healthcare concerns. Estrogen patch has resolved her vasomotor symptoms. Seborrhea has been controlled. It tends to worsen with stress or lack of sleep. MD [address], [place], [address], [facility] Rooney MD 06/03/2018 11:49:19 12/14/2018 text/html Follow-up for menopausal symptoms. Continues on estrogen patch. She has had no menses for the past year and tolerates the medication well. It did alleviate her vasomotor symptoms and she would like to continue. She is changed jobs and now living in [place] with her . He has no history of phlebitis and does not smoke there is no history of breast cancer MD [address], [place], [address], [facility] Rooney MD 12/14/2018 17:20:41 OBGyn Episode No OBEpisode recorded.
== END 2024-11-11 18:00 | disposition home or self-care (01) ==
LOC: HO.HMCH 15:30
PROVIDERS: PCP Internal Medicine
DX: Z23 Encounter for immunization (principal)

== ENCOUNTER → 2024-11-11 15:29 | Outpatient (BNVA) | payer BC, SELFPAY | PROVIDERS: PCP Internal Medicine | DX: N95.9 Unspecified menopausal and perimenopausal disorder (principal); G47.00 Insomnia, unspecified; Z23 Encounter for immunization | CPT/HCPCS: 90471; 90715; 96127 ==